=== PATIENT | female | born 1985 | race Two or more races ===

== ENCOUNTER 2022-07-29 18:34 | Emergency (ER) | payer OTHER ==
[~2022-07-29] VITALS: Ht 167.6 cm; Wt 77.5 kg
[2022-07-29] MEDS ORDERED: LORazepam 0.5 MG TAB PO ONE (21:45)
[2022-07-29] MEDS ORDERED: HYDR50CA PO (21:47)
[2022-07-29 22:40] VITALS: BP 129/74
== END 2022-07-29 22:40 | disposition home or self-care (01) ==
LOC: ER 18:34
DX: F41.9 Anxiety disorder, unspecified (principal)
CPT/HCPCS: 81025